=== PATIENT | male | born 1965 | race Caucasian/White ===

== ENCOUNTER → 2017-04-10 | Outpatient (CLI) | payer BC ==
[~2017-04-10] MED LIST: BYSTOLIC2.5 MG PO; GADOBUTROL 10 MMOL/10 ML VIAL IV ONE
--- NOTE | 2017-04-10 15:38 | KCIC ---
MRI Cervical Spine Without Contrast History: Numbness and weakness, tingling in extremities Technique: Multiplanar, multi sequential noncontrast MR imaging was performed of the cervical spine. Comparison: None Findings: There is some motion degradation. Cervical cord caliber is within normal limits without convincing focal signal abnormality allowing for artifact created by motion. There is no significant abnormality of the cervical medullary junction. There is no significant marrow edema. Cervical vertebral body stature is maintained. There is very minimal posterior subluxation C5 relative to C6. There is mild degenerative disc disease C3-4, mild disc desiccation at other levels. There is relative diffuse low signal of the marrow on the T1 and T2 sequences without associated with significant marrow edema. C2-C3: Spinal canal and neural foramina are adequate. C3-C4: There is uncovertebral degenerative change bilaterally greater on the right. Spinal canal is adequate. Left neural foramen is adequate. There is fairly severe narrowing of the right neural foramen. C4-C5: There is minimal disc osteophyte complex and central protrusion. Central canal is adequate at 11 mm. There is uncovertebral degenerative change on the left. Right neural foramen is overall adequate, moderate to severe narrowing of the left neural foramen. There is mild facet hypertrophic change greater on the left. C5-C6: There is minimal disc osteophyte complex and bulge. Central canal is adequate on the order of 11 mm. There is bilateral facet degenerative change, also left uncovertebral degenerative change. Right neural foramen is adequate, moderate to severe narrowing on the left. C6-C7: There is bilateral facet hypertrophic change. Spinal canal is adequate. Neural foramina are overall adequate. C7-T1: Spinal canal and neural foramina are adequate. Impression: 1. There is no significant cervical spinal stenosis. 2. There is neural foramina compromise as described including more significant narrowing on the right at C3-4 and on the left at C4-5 and C5-C6 due to facet and uncovertebral degenerative change. Electronically signed by: Ryan Hung MD (04/10/2017 3:35 PM)
--- NOTE | 2017-04-10 16:31 | KCIC ---
MRI Brain with and without contrast History: Numbness and weakness, tingling in extremities Technique: Multiplanar, multi sequential pre and postcontrast MR imaging was performed of the brain. Contrast: 8 cc Gadavist Comparison: None Findings: There is some motion degradation. There are several scattered foci of T2 and FLAIR hyperintense signal abnormality of the supratentorial white matter bilaterally. Some small foci on the right have a perpendicular orientation relative to the lateral ventricle, also some small foci on the left. There is no abnormal intracranial enhancement. There is no midline shift or extra-axial fluid collection. Ventricles, sulci, and cisterns are within normal limits in size and configuration. There is no restricted diffusion suggestive of recent infarct or cytotoxic edema. There is no significant hemosiderin deposition of the brain parenchyma. There is preservation of the major arterial flow voids and skull base. There is patchy mild ethmoid air cells and frontal sinus mucosal thickening, also minimally of the maxillary sinuses. Mastoid air cells are mostly aerated, small foci of fluid on the right. Cerebellar tonsils are normal in location. There is mild nonspecific heterogeneity of the marrow of the nonexpanded clivus. There is no significant abnormality of the pituitary gland or pineal gland. Impression: 1. There are several scattered foci of nonenhancing T2 and FLAIR hyperintense signal abnormality of the supratentorial white matter. Findings are nonspecific, potentially could be seen with sequela of inflammatory demyelinating disease in the appropriate clinical setting although other consideration of chronic microvascular ischemic disease. There is no abnormal intracranial enhancement. Electronically signed by: Ryan Hung MD (04/10/2017 4:29 PM)
== END | disposition home or self-care (01) ==
LOC: KCIC MRI 14:33
PROVIDERS: ATTEND Physical Medicine & Rehabilitation
DX: M47.892 Other spondylosis, cervical region (principal); M50.31 Other cervical disc degeneration, high cervical region; M25.78 Osteophyte, vertebrae; M48.02 Spinal stenosis, cervical region
CPT/HCPCS: 70553; 72141; A9585